=== PATIENT | female | born 1980 | race Caucasian/White ===

== ENCOUNTER 2020-08-19 15:38 | Outpatient (REF) | payer OTHER, SELFPAY | END 2020-08-19 15:39 | disposition home or self-care (01) | LOC: HO.LAB 15:38 | PROVIDERS: Visit Provider Internal Medicine | DX: Z20.828 Contact with and (suspected) exposure to other viral communicable diseases (principal) | CPT/HCPCS: C9803; U0003 ==

== ENCOUNTER 2021-06-09 09:49 | Outpatient (REF) | payer OTHER, SELFPAY | END 2021-06-09 09:50 | disposition home or self-care (01) | LOC: HO.LAB 09:49 | PROVIDERS: Visit Provider Internal Medicine | DX: Z20.822 Contact with and (suspected) exposure to COVID-19 (principal) | CPT/HCPCS: C9803; U0003; U0005 ==

== ENCOUNTER 2021-06-28 16:22 | Emergency (ER) | payer OTHER, SELFPAY ==
[2021-06-28 17:57] VITALS: BP 177/99; PULSE 67; RESP 18; TEMP 37.1; O2SAT 98; BMI 43.5
--- NOTE | 2021-06-28 18:49 | ED.BACK ---
HPI - Back Pain/Injury General Chief Complaint: Back Pain/Injury Stated Complaint: work inj Source: patient Mode of arrival: ambulatory Limitations: no limitations History of Present Illness HPI Narrative: 41-year-old female presents with lower back pain and muscular strain after a work related injury. 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 Does not report any other concerning symptoms. MD elicited complaint: back pain Pertinent past history: prior back pain Onset (ago): hour(s) (Several hours prior to arrival) Timing: constant Severity: moderate Pain scale (0-10): 6 Quality: aching, spasming and throbbing Location: lumbar spine, right lower back and left lower back Radiation: none Exacerbating factors: movement, walking and lifting Relieving factors: immobilization and sitting upright Context: while lifting and turning/twisting Associated symptoms: denies other symptoms Treatments prior to arrival: NSAIDS Work related injury: Yes Related Data Previous Rx's Medication Instructions Recorded cyclobenzaprine 10 mg tablet 10 mg PO TID PRN #14 tab 06/28/21 diazepam 5 mg tablet (Valium) 5 mg PO BEDTIME PRN #2 tab 06/28/21 diazepam 5 mg tablet (Valium) 5 mg PO BEDTIME PRN #2 tab 06/28/21 Allergies Allergy/AdvReac Type Severity Reaction Status Date / Time No Known Allergies Allergy Verified 06/28/21 17:56 Review of Systems Review of Systems: Constitutional: No Fever, No Chills ENT/Mouth: No Ear Pain, No Hoarseness, No sore throat Eyes: No Eye Pain, No Swelling, No Redness, No Foreign Body Cardiovascular: No Chest Pain, No SOB Respiratory: No Cough, No Dyspnea Gastrointestinal: No Nausea, No Vomiting, No Diarrhea, No abdominal Pain Genitourinary: No Dysuria, No Hematuria Musculoskeletal: positive lumbar back pain, No Myalgias, No Joint Swelling Skin: No Skin lacerations, No rash Neuro: No Weakness, No Numbness, No Paresthesias, No Loss of Consciousness, No Dizziness, No Headache Psych: No Anxiety/Panic, No Depression Heme/Lymph: no easy bruising, no Lymphadenopathy Endocrine: No Polyuria, No Polydipsia Yes all other systems are reviewed and are negative [facility] Past Medical History Attestation statement: The following information was validated with the patient. Source: old records reviewed Social History Social History Advance Directives: No Advance Directives Information Provided: No Physical Exam Vital Signs: Vital Signs: Last Vital Signs Temp 98.7 F 06/28/21 17:57 Pulse 67 06/28/21 17:57 Resp 18 06/28/21 17:57 BP 177/99 H 06/28/21 17:57 Pulse Ox 98 06/28/21 17:57 Body Mass Index 43.5 Appearance: Alert. Oriented X3. Mild distress. Head: Normal external exam. Normocephalic. Atraumatic. No Warren signs noted. No raccoon eyes noted Eyes: PERRLA. EOMI. Conjunctiva and sclera normal. Eyelids normal. ENT: TM's Normal. Pharynx normal. Uvula midline. Moist mucous membranes. No trismus noted. No drooling noted. No muffled voice noted. Neck: Normal inspection. Neck supple. No adenopathy. Thyroid Normal. No meningeal signs. No neck mass noted. CVS: Normal heart rate and rhythm. Heart sound normal. No murmurs noted. Pulses equal to all extremities. Respiratory: No respiratory distress. Painless inspiration. Breath sounds normal. No wheezes/rales/rhonchi noted. Chest nontender. No accessory muscle usage noted or decreased air movement noted. Abdomen: Soft and nontender. Bowel sounds normal in all 4 quadrants. No distention noted. No organomegaly noted. No visible injury noted. Back: No CVA tenderness. Full range of motion noted. Skin: Skin warm and dry. Normal skin color. Normal skin turgor. No rashes/lesions/lacerations noted. Extremities: No lower extremity edema. Extremities exhibit normal range of motion. Extremities nontender. Neuro: cranial nerves 2-12 intact, no focal neural deficits, strength 5/5 to all extremities, No motor deficit. No sensory deficit. Patellar Reflexes normal. Course Course Course Narrative: 41-year-old female presents with lumbar back pain and spasms after a work related injury. No indication of cauda equina, has full range of motion, muscle spasm felt bilaterally at the lumbar, no vertebral tenderness or step-offs noted. Will treat with cyclobenzaprine and discharged home. Will have patient follow up with work connection as needed. Patient verbalized understanding of and agrees to plan of care discharge home. MDM - Back Pain/Injury Differential Diagnosis Differential diagnosis: Likely lumbar radiculopathy and strain of lumbar region Medical Records Attestation: I reviewed the patient's medical records. Discharge Plan Discharge Clinical Impression: Strain of lumbar region Qualifiers: Encounter type: initial encounter Qualified Code(s): S39.012A - Strain of muscle, fascia and tendon of lower back, initial encounter Patient Disposition: Home, Self-Care Instructions: Muscle Strain (ED), Acute Low Back Pain (ED), R.I.C.E. Treatment (ED) Additional Instructions: You were evaluated for muscular skeletal strain of the lower back during a work related injury. Please follow-up with work connection. I prescribed Valium 5 mg tablets. Take this medication at night. This medication is a benzo diazepam. Do not mix this medication with alcohol. I prescribed cyclobenzaprine. This medication is a muscle relaxer. Do not drive or operate machinery while taking both medications. This medication can delay reaction time, cause drowsiness, and increased risk for falls. Thank you for choosing this emergency department for evaluation. Please follow-up with primary care physician as needed. Return to the emergency department for any new, concerning, or worsening symptoms. Prescriptions: New diazepam [Valium] 5 mg tablet 5 mg PO BEDTIME PRN (Reason: muscle spasm) Qty: 2 RF: 0 cyclobenzaprine 10 mg tablet 10 mg PO TID PRN (Reason: muscle spasm) Qty: 14 RF: 0 diazepam [Valium] 5 mg tablet 5 mg PO BEDTIME PRN (Reason: muscle spasm) Qty: 2 RF: 0 Referrals: [facility] [Outside] - 2 days (Lumbar strain) Stand Alone Forms: Work/School Release Interventions: ED Discharge Assessment Last Done: 06/28/21 19:28 Discharge Date/Time: 06/28/21 19:29
[2021-06-28] MEDS: Acetaminophen 325 MG TABLET 650 MG PO (19:10)
== END 2021-06-28 19:29 | disposition home or self-care (01) ==
PROVIDERS: Emergency Provider Emergency Medicine Emergency Medical Services
DX: S39.012A Strain of muscle, fascia and tendon of lower back, initial encounter (principal); X50.0XXA Overexertion from strenuous movement or load, initial encounter; X50.3XXA Overexertion from repetitive movements, initial encounter; Y93.9 Activity, unspecified; Y92.239 Unspecified place in hospital as the place of occurrence of the external cause; Y99.0 Civilian activity done for income or pay; Z79.899 Other long term (current) drug therapy
CPT/HCPCS: 99283

== ENCOUNTER 2022-02-28 20:55 | Emergency (ER) | payer OTHER, SELFPAY ==
[2022-02-28 21:16] VITALS: BP 218/119; PULSE 73; RESP 18; TEMP 36.6; O2SAT 97; BMI 43.4
--- NOTE | 2022-03-01 00:27 | ED_ITS ---
HPI - Eye Problem General Chief complaint: Eye Problems Stated complaint: eye irritation Time Seen by Provider: 03/01/22 00:27 Source: patient Mode of arrival: ambulatory Limitations: no limitations History of Present Illness HPI Narrative: Patient with extended contact lenses last for 2 weeks noticed irritation and redness in the right eye since yesterday no trauma clear discharge no photosensitivity Related Data Previous Rx's Medication Instructions Recorded cyclobenzaprine 10 mg tablet 10 mg PO TID PRN #14 tab 06/28/21 diazepam 5 mg tablet (Valium) 5 mg PO BEDTIME PRN #2 tab 06/28/21 diazepam 5 mg tablet (Valium) 5 mg PO BEDTIME PRN #2 tab 06/28/21 ofloxacin 0.3 % eye drops (Ocuflox) See Rx Instructions .ROUTE 03/01/22 .COMPLEX #5 ml Allergies Allergy/AdvReac Type Severity Reaction Status Date / Time No Known Allergies Allergy Verified 02/28/22 21:16 Review of Systems Review of Systems: Yes all other systems are reviewed and are negative [facility] Social History Social History Advance Directives: No Advance Directives Information Provided: No Physical Exam Vital Signs: Vital Signs: Last Vital Signs Temp 97.8 F 02/28/22 21:16 Pulse 73 02/28/22 21:16 Resp 18 02/28/22 21:16 BP 218/119 H 02/28/22 21:16 Pulse Ox 97 02/28/22 21:16 BMI result Body Mass Index 43.4 Const: General: comfortable and no acute distress HEENT: Head: Yes normocephalic and Yes atraumatic Ears: hearing grossly normal bilaterally Eyes: Visual Canrey: normal visual carney by confrontation Conjunctivae: conjunctival abnormal (Injected conjunctiva right eye) Sclerae: scleral abnormal (Injected sclera right eye) Corneas: corneas normal and fluorescein used Pupils: Equal, round and reactive pupils present EOM: EOMs intact bilaterally Neuro: Cranial nerves: Yes Equal, round and reactive pupils present MDM - Eye Problem MDM Narrative Medical decision making narrative: Patient with right conjunctivitis uses contact lenses. Fluorescein test is negative for corneal ulcer. Tobramycin eyedrops were given in the ER Discharge Plan Discharge Clinical Impression: Bacterial conjunctivitis Patient Disposition: Home, Self-Care Instructions: Conjunctivitis (ED) Additional Instructions: Do not use contact lenses tele completely get better Take blood pressure medicine at home Report to the ER if worsening of infection of the right eye Prescriptions: New ofloxacin [Ocuflox] 0.3 % drops See Rx Instructions .ROUTE .COMPLEX Qty: 5 0RF Rx Instructions: put 1-2 drps into affected eye(s) every 2-4 h x 2 days, then 1-2 drps 4 t imes/day days 3-7 No Action diazepam [Valium] 5 mg tablet 5 mg PO BEDTIME PRN (Reason: muscle spasm) Qty: 2 0RF cyclobenzaprine 10 mg tablet 10 mg PO TID PRN (Reason: muscle spasm) Qty: 14 0RF diazepam [Valium] 5 mg tablet 5 mg PO BEDTIME PRN (Reason: muscle spasm) Qty: 2 0RF Stand Alone Forms: Work/School Release Discharge Date/Time: 03/01/22 00:58
[2022-03-01] MEDS: Fluorescein Sodium STRIP 1 STRIP EYE-RIGHT (00:41)
[2022-03-01] MEDS: Tobramycin Sulfate 0.3% Sol Op 5 ML BTL 2 DROP EYE-RIGHT (00:41)
== END 2022-03-01 00:58 | disposition home or self-care (01) ==
PROVIDERS: Emergency Provider Internal Medicine
DX: H10.9 Unspecified conjunctivitis (principal); H57.11 Ocular pain, right eye
CPT/HCPCS: 99283